=== PATIENT | female | born 1940 | race Caucasian/White ===

== ENCOUNTER 2018-09-03 08:13 | Day surgery (SDC) | payer OTHER | END 2018-09-03 14:00 | disposition home or self-care (01) | LOC: AMB-ENDOS 08:13 → CIR.AMB 14:00 → AMB-ENDOS 14:00 → CIR.AMB 14:30 → AMB-ENDOS 19:49 | DX: K64.8 Other hemorrhoids (principal) ==

== ENCOUNTER → 2019-02-25 | Day surgery (SDC) | payer OTHER | END | disposition home or self-care (01) | LOC: AMB-ENDOS 08:38 | DX: K62.7 Radiation proctitis (principal); Z12.11 Encounter for screening for malignant neoplasm of colon; Z12.12 Encounter for screening for malignant neoplasm of rectum ==

== ENCOUNTER 2022-02-14 07:35 | Day surgery (SDC) | payer OTHER | END 2022-02-14 15:15 | disposition home or self-care (01) | LOC: AMB-ENDOS 07:35 | PROVIDERS: ATTEND Colon & Rectal Surgery | DX: K62.5 Hemorrhage of anus and rectum (principal); Z20.822 Contact with and (suspected) exposure to COVID-19; Z85.048 Personal history of other malignant neoplasm of rectum, rectosigmoid junction, and anus ==

== ENCOUNTER 2025-05-19 08:49 | Day surgery (SDC) | payer OTHER ==
[2025-05-19] MEDS ORDERED: MIDAZOLAM HCL 2 MG/2 ML VIAL IV ONE (11:00)
[2025-05-19] MEDS ORDERED: DIPHENHYDRAMINE HCL 50 MG/ML VIAL 1ML IV ONE (11:00)
[2025-05-19] MEDS ORDERED: ONDANSETRON HCL 2 MG/ML VIAL IV ONE (11:00)
[2025-05-19] MEDS ORDERED: fentaNYL CITRATE 50 MCG/ML AMPUL IV PUSH ONE (11:00)
== END 2025-05-19 11:40 | disposition home or self-care (01) ==
LOC: AMB-ENDOS 08:49
PROVIDERS: ATTEND Colon & Rectal Surgery
DX: D12.3 Benign neoplasm of transverse colon (principal); K63.5 Polyp of colon; K62.5 Hemorrhage of anus and rectum; K62.7 Radiation proctitis